=== PATIENT | male | born 1985 | race African-American/Black ===

== ENCOUNTER 2025-01-31 19:43 | Emergency (ER) | payer OTHER ==
[~2025-01-31] VITALS: Ht 170.2 cm; Wt 85.5 kg
[2025-01-31 20:13] LABS: KETONE, URINE AUTO RFX NEGATIVE (NEGATIVE); LEUKOCYTE ESTERASE UR AUTO RFX NEGATIVE (NEGATIVE); MUCUS, URINE RFX SMALL (NEGATIVE); NITRITE, URINE AUTO RFX NEGATIVE (NEGATIVE); RBC, URINE AUTO RFX 0 /HPF (0-3); SQUAM EPITHELIAL CELL UR AURFX 0 /HPF (0-6); WBC, URINE AUTO RFX 0 /HPF (0-3)
[2025-01-31 21:16] VITALS: BP 129/87; TEMP 98.4; O2SAT 97
[2025-01-31 21:39] LABS: GC DNA AMPLIFICATION NEGATIVE (NEGATIVE)
[2025-01-31 22:40] LABS: Trichomonas vaginalis (AMP) NOT DETECTED (NEGATIVE)
== END 2025-01-31 22:02 | disposition home or self-care (01) ==
LOC: M ED 19:43
DX: N50.3 Cyst of epididymis (principal)